=== PATIENT | male | born 1995 | race Two or more races ===

== ENCOUNTER 2017-01-05 02:18 | Emergency (ER) | payer SELFPAY ==
[~2017-01-05] VITALS: Ht 177.8 cm; Wt 81.6 kg
[2017-01-05 03:02] LABS: DEFINITIVE VIEW TRANSMISSION; Hematocrit 51.8 % (41.0-53.0); Hemoglobin 17.3 g/dL (13.5-17.5); Mean Corpuscular Hemoglobin 30.8 pg (28.0-32.0); Mean Corpuscular Hgb Conc. 33.4 g/dL (32.0-36.0); Mean Platelet Volume 9.3 fL (7.4-10.4); Platelet Count (auto) 380 10^3/uL (140-450); Red Cell Distribution Width 13.3 % (11.6-16.0); SUSPECT VIEW TRANSMISSION; White Blood Cell 24.3 10^3/uL (4.4-10.8)
[2017-01-05 03:17] LABS: Metamyelocytes % 0; Myelocytes % 0; Promyelocytes % 0; Reactive Lymphocytes 0
[2017-01-05 03:22] LABS: Albumin 4.3 g/dL (3.4-5.0); BUN/Creatinine Ratio 17.6; Bilirubin, Total 0.6 mg/dL (0.2-1.0); Calcium 8.9 mg/dL (8.5-10.1); Potassium 3.3 mmol/L (3.5-5.1); Total Protein 8.1 g/dL (6.4-8.2)
[2017-01-05 04:00] LABS: Urine Bilirubin Negative (Negative); Urine Blood Negative /uL (Negative); Urine Color Yellow (Yellow); Urine Glucose Normal (Normal); Urine Granular Cast MANY /lpf (0); Urine Ketone Negative (Negative); Urine Mucus FEW (None Seen); Urine Nitrite Negative (Negative); Urine RBC <1 /hpf (0 - 3); Urine Urobilinogen Normal (Negative); Urine pH 6.5 (5.0-8.0)
[2017-01-05 04:23] LABS: Hypersegmented Neutrophils Present; Platelet Estimate Adequate; RBC Morphology Normal
[2017-01-05] MEDS ORDERED: SODIUM CHLORIDE 0.9% 1,000 ML IV ONE ×2 (05:00→06:00)
[2017-01-05 08:08] VITALS: BP 143/77
[2017-01-05] MEDS ORDERED: POTASSIUM CHL 20 Meq TABLET PO ONE (08:45)
[2017-01-05 08:55] LABS: Basophils # (auto) 0 uL; Basophils % (auto) 0.1 % (0.0-2.0); Eosinophils # (auto) 0 uL; Hematocrit 46.7 % (41.0-53.0); Lymphocytes # (auto) 0.8 uL; Lymphocytes % (auto) 4.4 % (10.0-50.0); Mean Corpuscular Hemoglobin 31.2 pg (28.0-32.0); Mean Corpuscular Hgb Conc. 34.2 g/dL (32.0-36.0); Mean Corpuscular Volume 91.3 fL (80.0-100.0); Mean Platelet Volume 8.8 fL (7.4-10.4); Monocytes # (auto) 1.3 uL; Monocytes % (auto) 7.4 % (0.0-12.0); Neutrophils # (auto) 15.6 uL; Neutrophils % (auto) 88.1 % (37.0-80.0); Platelet Count (auto) 322 10^3/uL (140-450); Red Cell Distribution Width 13.5 % (11.6-16.0); White Blood Cell 17.7 10^3/uL (4.4-10.8)
== END 2017-01-05 10:20 ==
LOC: ER 02:23
DX: R00.0 Tachycardia, unspecified (principal); K59.00 Constipation, unspecified; D72.829 Elevated white blood cell count, unspecified; F12.10 Cannabis abuse, uncomplicated; E87.6 Hypokalemia; R73.9 Hyperglycemia, unspecified; Z02.89 Encounter for other administrative examinations
CPT/HCPCS: 36415; 71010; 74176; 80053; 81001; 83605; 84484; 85007; 85025; 85027; 93005; 96360; 96361; 99285; G0434; J7030